=== PATIENT | female | born 1980 | race Two or more races ===

== ENCOUNTER 2021-07-07 10:11 | Inpatient (IN) | payer SELFPAY ==
[~2021-07-07] VITALS: Ht 149.9 cm; Wt 49.3 kg
[2021-07-07] MEDS ORDERED: METOCLOPRAMIDE HCL 10 MG/2 ML VIAL. IVP ONE (11:00)
[2021-07-07 11:12] LABS: BASO % 0 % (0-3); EOS % 0 % (0-3); HEMATOCRIT 38.8 % (36.0-47.0); HEMOGLOBIN 13.5 g/dL (12.0-15.5); LYMPH # 0.5 x10^3/uL (1.0-4.8); LYMPH % 7 % (24-48); MEAN CORPUSCULAR HEMOGLOBIN 33 pg (25-35); MEAN CORPUSCULAR HGB CONC 35 g/dL (31-37); MEAN CORPUSCULAR VOLUME 94 fL (79-100); MONO # 0.4 x10^3/uL (0.0-1.1); MONO % 6 % (0-9); NEUT # 6.4 x10^3/uL (1.8-7.7); NEUT % 87 % (31-73); PLATELET COUNT 174 x10^3/uL (140-400); RED BLOOD COUNT 4.13 x10^6/uL (3.50-5.40); RED CELL DISTRIBUTION WIDTH 12.3 % (11.5-14.5); WHITE BLOOD COUNT 7.4 x10^3/uL (4.0-11.0)
[2021-07-07 11:22] LABS: CALCIUM 8.6 mg/dL (8.5-10.1); CREATININE 0.6 mg/dL (0.6-1.0); GFR 109.1; POTASSIUM 3.7 mmol/L (3.5-5.1)
[2021-07-07 11:30] LABS: BILIRUBIN,URINE NEGATIVE (NEG); CLARITY,URINE CLEAR; COLOR,URINE YELLOW; NITRITE,URINE NEGATIVE (NEG); PROTEIN,URINE NEGATIVE (NEG-TRACE)
[2021-07-07 11:33] LABS: ALBUMIN 3.9 g/dL (3.4-5.0); ALBUMIN/GLOBULIN RATIO 1.3 (1.0-1.7); TOTAL BILIRUBIN 1.9 mg/dL (0.2-1.0); TOTAL PROTEIN 6.9 g/dL (6.4-8.2)
--- NOTE | 2021-07-07 11:52 | PHYS DOC ---
Past Medical History Past Surgical History: No Surgical History Smoking Status: Never Smoker Alcohol Use: None General Adult EDM: Chief Complaint: ABDOMINAL PAIN HPI: HPI: Patient is a 41 year old female who present to ER for evaluation of right upper quad abdominal pain started yesterday. Patient complained of nausea vomiting , denies any fever. Patient denies any cough or fever, no chest pain, no trouble breathing Review of Systems: Review of Systems: Constitutional: Denies fever or chills. [] Eyes: Denies change in visual acuity. [] HENT: Denies nasal congestion or sore throat. [] Respiratory: Denies cough or shortness of breath. [] Cardiovascular: Denies chest pain or edema. [] GI: Positive for right upper quad abdominal pain with nausea, vomiting : Denies dysuria. [] Musculoskeletal: Denies back pain or joint pain. [] Integument: Denies rash. [] Neurologic: Denies headache, focal weakness or sensory changes. [] Endocrine: Denies polyuria or polydipsia. [] Lymphatic: Denies swollen glands. [] Psychiatric: Denies depression or anxiety. [] Heart Score: C/O Chest Pain: N/A Risk Factors: Risk Factors: DM, Current or recent (<one month) smoker, HTN, HLP, family history of CAD, obesity. Risk Scores: Score 0 - 3: 2.5% MACE over next 6 weeks - Discharge Home Score 4 - 6: 20.3% MACE over next 6 weeks - Admit for Clinical Observation Score 7 - 10: 72.7% MACE over next 6 weeks - Early Invasive Strategies Current Medications: Current Medications Medications (Trade) Dose Ordered Sig/[facility] Start Time Stop Time Status Last Admin Dose Admin Metoclopramide HCl (Reglan Vial) 10 mg 1X ONCE 07/07/21 11:00 07/07/21 11:08 DC 07/07/21 11:29 10 MG Allergies: Allergies: Allergies Coded Allergies Type Severity Reaction Last Updated Verified No Known Drug Allergies 07/07/21 No Physical Exam: PE: Constitutional: Well developed, well nourished, no acute distress, non-toxic appearance. [] HENT: Normocephalic, atraumatic, bilateral external ears normal, oropharynx moist, no oral exudates, nose normal. [] Eyes: PERRLA, EOMI, conjunctiva normal, no discharge. [] Neck: Normal range of motion, no tenderness, supple, no stridor. [] Cardiovascular:Heart rate regular rhythm, no murmur [] Lungs & Thorax: Bilateral breath sounds clear to auscultation [] Abdomen: Bowel sounds normal, soft, there is tenderness to palpation in right upper quadrant, no guarding, no rebound Skin: Warm, dry, no erythema, no rash. [] Back: No tenderness, no CVA tenderness. [] Extremities: No tenderness, no cyanosis, no clubbing, ROM intact, no edema. [] Neurologic: Alert and oriented X 3, normal motor function, normal sensory function, no focal deficits noted. [] Psychologic: Affect normal, judgement normal, mood normal. [] Current Patient Data: Labs: Laboratory Tests Test 07/07/21 11:00 White Blood Count 7.4 x10^3/uL (4.0-11.0) Red Blood Count 4.13 x10^6/uL (3.50-5.40) Hemoglobin 13.5 g/dL (12.0-15.5) Hematocrit 38.8 % (36.0-47.0) Mean Corpuscular Volume 94 fL (79-100) Mean Corpuscular Hemoglobin 33 pg (25-35) Mean Corpuscular Hemoglobin Concent 35 g/dL (31-37) Red Cell Distribution Width 12.3 % (11.5-14.5) Platelet Count 174 x10^3/uL (140-400) Neutrophils (%) (Auto) 87 % (31-73) H Lymphocytes (%) (Auto) 7 % (24-48) L Monocytes (%) (Auto) 6 % (0-9) Eosinophils (%) (Auto) 0 % (0-3) Basophils (%) (Auto) 0 % (0-3) Neutrophils # (Auto) 6.4 x10^3/uL (1.8-7.7) Lymphocytes # (Auto) 0.5 x10^3/uL (1.0-4.8) L Monocytes # (Auto) 0.4 x10^3/uL (0.0-1.1) Eosinophils # (Auto) 0.0 x10^3/uL (0.0-0.7) Basophils # (Auto) 0.0 x10^3/uL (0.0-0.2) Sodium Level 137 mmol/L (136-145) Potassium Level 3.7 mmol/L (3.5-5.1) Chloride Level 103 mmol/L (98-107) Carbon Dioxide Level 23 mmol/L (21-32) Anion Gap 11 (6-14) Blood Urea Nitrogen 13 mg/dL (7-20) Creatinine 0.6 mg/dL (0.6-1.0) Estimated GFR (Cockcroft-Gault) 109.1 BUN/Creatinine Ratio 22 (6-20) H Glucose Level 124 mg/dL (70-99) H Calcium Level 8.6 mg/dL (8.5-10.1) Total Bilirubin 1.9 mg/dL (0.2-1.0) H Aspartate Amino Transferase (AST) 1346 U/L (15-37) H Alanine Aminotransferase (ALT) 722 U/L (14-59) H Alkaline Phosphatase 66 U/L (46-116) Total Protein 6.9 g/dL (6.4-8.2) Albumin 3.9 g/dL (3.4-5.0) Albumin/Globulin Ratio 1.3 (1.0-1.7) Lipase 197 U/L (73-393) Laboratory Tests 07/07/21 11:00 Laboratory Tests 07/07/21 11:00 Vital Signs: Vital Signs Date Time Temp Pulse Resp B/P (MAP) Pulse Ox O2 Delivery O2 Flow Rate FiO2 07/07/21 11:17 52 18 137/79 (98) 100 Room Air 07/07/21 10:45 97.7 97.7 EKG: EKG: [] Radiology/Procedures: Radiology/Procedures: [facility] [address] [place] [address] IMAGING REPORT Signed PATIENT: OLU RG ACCOUNT: [id number] : 1980 LOCATION: ER AGE: 41 SEX: F EXAM STATUS: PRE ER ORD. PHYSICIAN: CIPRIANO WHEAT DO REASON: RUQ ABDOMINAL PAIN PROCEDURE: ABDOMEN LTD EXAM: ULTRASOUND ABDOMEN LIMITED CLINICAL HISTORY: Reason: Right upper quadrant ABDOMINAL PAIN COMPARISON: None available. TECHNIQUE: Limited ultrasound examination of the right upper quadrant of the abdomen was performed. FINDINGS: No focal enlargement of the pancreas is seen. Intrahepatic portion of the IVC is unremarkable. The liver measures 15.8 centimeters in length. No hepatic mass is seen. There is a 21 mm gallstone within the gallbladder fundus. Gallbladder is distended measuring up to 11.2 cm. No gallbladder wall thickening is apparent. The extra hepatic bile duct measures 5 mm in caliber which is normal. The length of the right kidney is 10.5 cm. No hydronephrosis or renal mass or perinephric fluid collection is seen on the right side. IMPRESSION: Cholelithiasis. Gallbladder distention measuring over 11 cm. Electronically signed by: Sanchez Crouch MD (07/07/2021 1:06 PM) [id number] DICTATED and SIGNED BY: SANCHEZ CROUCH MD DATE: 07/07/21 [id number] 0 Course & Med Decision Making: Course & Med Decision Making Pertinent Labs and Imaging studies reviewed. (See chart for details) [] Dragon Disclaimer: Dragon Disclaimer: This electronic medical record was generated, in whole or in part, using a voice recognition dictation system. Departure Departure Impression: Primary Impression: Biliary colic Additional Impression: Liver function abnormality Disposition: ADMITTED INPATIENT Admitting Physician: ILA (Dr. Hoyt) Condition: STABLE CIPRIANO WHEAT DO Jul 07, 2021 11:52
[2021-07-07 12:09] LABS: BACTERIA,URINE 0 /HPF (0-FEW); RBC,URINE 0 /HPF (0-2); WBC,URINE 0 /HPF (0-4)
--- NOTE | 2021-07-07 13:09 | RAD ---
EXAM: ULTRASOUND ABDOMEN LIMITED CLINICAL HISTORY: Reason: Right upper quadrant ABDOMINAL PAIN COMPARISON: None available. TECHNIQUE: Limited ultrasound examination of the right upper quadrant of the abdomen was performed. FINDINGS: No focal enlargement of the pancreas is seen. Intrahepatic portion of the IVC is unremarkab le. The liver measures 15.8 centimeters in length. No hepatic mass is seen. There is a 21 mm gallston e within the gallbladder fundus. Gallbladder is distended measuring up to 11.2 cm. No gallbladder wal l thickening is apparent. The extra hepatic bile duct measures 5 mm in caliber which is normal. The l ength of the right kidney is 10.5 cm. No hydronephrosis or renal mass or perinephric fluid collection is seen on the right side. IMPRESSION: Cholelithiasis. Gallbladder distention measuring over 11 cm. Electronically signed by: Brenton Crouch MD (07/07/2021 1:06 PM) [id number]
[2021-07-07] MEDS ORDERED: MORPHINE SULFATE 4 MG/ML INJ. IVP ONE (13:15)
[2021-07-07 13:56] LABS: U PREG PATIENT NEGATIVE (NEG)
--- NOTE | 2021-07-07 14:21 | PDOC1 ---
History and Physical Date of Admission Date of Admission DATE: 07/07/21 TIME: 14:21 Identification/Chief Complaint Chief Complaint Abdominal pain Source Source: Patient History of Present Illness History of Present Illness Ms Leal is a 41yo [place] female with no past medical history who comes to ED accompanied by her c/o severe RUQ pain. Pain is colicky, sharp, does not radiate, rated 7/10. Pain awoke her 300 and did vomit twice and applied a heating pad which initially gave her some improvement. She had associated nausea and was unable to even get out of bed. this began upon awakening today. no cough or fever, no chest pain, no trouble breathing This occurred 1 month ago and resolved, though she has been taking omeprazole since then as I suspected it was due to dyspepsia or from eating hot peppers. No diarrhea or constipation. No recent travel or sick contacts. Has 3 healthy children at home. Labs with WBC 7.4, Hb 13.5, platelets 174, NA 137, K3.7, BUN 13, CR 0.6, glucose 124, calcium 8.6, total bilirubin 1.9, AST 1346, ALT 722, alk phos 66, albumin 3.9, lipase 197, urine test negative urinalysis otherwise bland. Abdominal US with 21 mm gallstone in gallbladder fundus and enlarged gallbladder 11.2 cm. No gallbladder wall thickening is apparent. The extra hepatic bile duct measures 5 mm. Pain improved to 4/10 with IV morphine. Admitted for further care with general surgery consultation. Past Medical History Cardiovascular: No pertinent hx Pulmonary: No pertinent hx Past Surgical History Past Surgical History: No pertinent history Family History Family History: Diabetes (Mother) Social History Smoke: No ALCOHOL: none Drugs: None Current Medications Current Medications Current Medications Metoclopramide HCl (Reglan Vial) 10 mg 1X ONCE IVP Last administered on 07/07/21at 11:29; Start 07/07/21 at 11:00; Stop 07/07/21 at 11:08; Status DC Morphine Sulfate (Morphine Sulfate) 4 mg 1X ONCE IVP Last administered on 07/07/21at 13:28; Start 07/07/21 at 13:15; Stop 07/07/21 at 13:16; Status DC Allergies Allergies: Coded Allergies: No Known Drug Allergies (Unverified , 07/07/21) ROS General: YES: Appetite; No: Chills, Night Sweats, Fatigue, Malaise, Other PSYCHOLOGICAL ROS: No: Anxiety, Behavioral Disorder, Concentration difficultie, Decreased libido, Depression, Disorientation, Hallucinations, Hostility, Irritablity, Memory difficulties, Mood Swings, Obsessive thoughts, Physical abuse, Sexual abuse, Sleep disturbances, Suicidal ideation, Other Eyes: No Blurry vision, No Decreased vision, No Double vision, No Dry eyes, No Excessive tearing, No Eye Pain, No Itchy Eyes, No Loss of vision, No Photophobia, No Scotomata, No Uses contacts, No Uses glasses, No Other HEENT: No: Heacaches, Visual Changes, Hearing change, Nasal congestion, Nasal discharge, Oral lesions, Sinus pain, Sore Throat, Epistaxis, Sneezing, Snoring, Tinnitus, Vertigo, Vocal changes, Other ALLERGY AND IMMUNOLOGY: No: Hives, Insect Bite Sensitivity, Itchy/Watery Eyes, Nasal Congestion, Post Nasal Drip, Seasonal Allergies, Other Hematological and Lymphatic: No: Bleeding Problems, Blood Clots, Blood Transfusions, Brusing, Night Sweats, Pallor, Swollen Lymph Nodes, Other ENDOCRINE: No: Breast Changes, Galactorrhea, Hair Pattern Changes, Hot Flashes, Malaise/lethargy, Mood Swings, Palpitations, Polydipsia/polyuria, Skin Changes, Temperature Intolerance, Unexpected Weight Changes, Other Breast: No New/Changing Breast Lumps, No Nipple changes, No Nipple discharge, No Other Respiratory: No: Cough, Hemoptysis, Orthopnea, Pleuritic Pain, Shortness of breath, SOB with excertion, Sputum Changes, Stridor, Tachypnea, Wheezing, Other Cardiovascular: No Chest Pain, No Palpitations, No Orthopnea, No Paroxysmal Noc. Dyspnea, No Edema, No Lt Headedness, No Other Gastrointestinal: Yes Nausea, Yes Vomiting, Yes Abdominal Pain; No Diarrhea, No Constipation, No Melena, No Hematochezia, No Other Genitourinary: No Dysuria, No Frequency, No Incontinence, No Hematuria, No Retention, No Discharge, No Urgency, No Pain, No Flank Pain, No Other, No , No , No , No , No , No , No Musculoskeletal: No Gait Disturbance, No Joint Pain, No Joint Stiffness, No Joint Swelling, No Muscle Pain, No Muscular Weakness, No Pain In:, No Swelling In:, No Other Neurological: No Behavorial Changes, No Bowel/Bladder ControlChng, No Confusion, No Dizziness, No Gait Disturbance, No Headaches, No Impaired Coord/balance, No Memory Loss, No Numbness/Tingling, No Seizures, No Speech Problems, No Tremors, No Visual Changes, No Weakness, No Other Skin: No Dry Skin, No Eczema, No Hair Changes, No Lumps, No Mole Changes, No Mottling, No Nail Changes, No Pruritus, No Rash, No Skin Lesion Changes, No Other, No Acne Physical Exam General: Alert, Oriented X3, Cooperative, moderate distress HEENT: Atraumatic, PERRLA, EOMI, Mucous membr. moist/pink Lungs: Clear to auscultation, Normal air movement Heart: S1S2, RRR, no thrills, no rubs, no gallops, no murmurs Abdomen: Normal bowel sounds, Soft, No hepatosplenomegaly, No masses, Other (RUQ tender, positive garcia sign) Rectal Exam: not examined Extremities: No clubbing, No cyanosis, No edema, Normal pulses, No tenderness/swelling Skin: No rashes, No breakdown, No significant lesion Neuro: Normal gait, Normal speech, Strength at 5/5 X4 ext, Normal tone, Sensation intact, Cranial nerves 3-12 NL, Reflexes 2+ Psych/Mental Status: Mental status NL, Mood NL Vitals Vitals Vital Signs Date Time Temp Pulse Resp B/P (MAP) Pulse Ox O2 Delivery O2 Flow Rate FiO2 07/07/21 13:17 52 17 116/65 (82) 100 Room Air 07/07/21 10:45 97.7 97.7 Labs Labs Laboratory Tests Test 07/07/21 10:48 07/07/21 11:00 Urine Collection Type Unknown Urine Color Yellow Urine Clarity Clear Urine pH 7.0 (<5.0-8.0) Urine Specific [place] 1.020 (1.000-1.030) Urine Protein Negative mg/dL (NEG-TRACE) Urine Glucose (UA) Negative mg/dL (NEG) Urine Ketones (Stick) Negative mg/dL (NEG) Urine Blood Negative (NEG) Urine Nitrite Negative (NEG) Urine Bilirubin Negative (NEG) Urine Urobilinogen Dipstick 1.0 mg/dL (0.2 mg/dL) Urine Leukocyte Esterase Negative (NEG) Urine RBC 0 /HPF (0-2) Urine WBC 0 /HPF (0-4) Urine Squamous Epithelial Cells Few /LPF Urine Bacteria 0 /HPF (0-FEW) Urine Test Negative (NEG) White Blood Count 7.4 x10^3/uL (4.0-11.0) Red Blood Count 4.13 x10^6/uL (3.50-5.40) Hemoglobin 13.5 g/dL (12.0-15.5) Hematocrit 38.8 % (36.0-47.0) Mean Corpuscular Volume 94 fL (79-100) Mean Corpuscular Hemoglobin 33 pg (25-35) Mean Corpuscular Hemoglobin Concent 35 g/dL (31-37) Red Cell Distribution Width 12.3 % (11.5-14.5) Platelet Count 174 x10^3/uL (140-400) Neutrophils (%) (Auto) 87 % (31-73) Lymphocytes (%) (Auto) 7 % (24-48) Monocytes (%) (Auto) 6 % (0-9) Eosinophils (%) (Auto) 0 % (0-3) Basophils (%) (Auto) 0 % (0-3) Neutrophils # (Auto) 6.4 x10^3/uL (1.8-7.7) Lymphocytes # (Auto) 0.5 x10^3/uL (1.0-4.8) Monocytes # (Auto) 0.4 x10^3/uL (0.0-1.1) Eosinophils # (Auto) 0.0 x10^3/uL (0.0-0.7) Basophils # (Auto) 0.0 x10^3/uL (0.0-0.2) Sodium Level 137 mmol/L (136-145) Potassium Level 3.7 mmol/L (3.5-5.1) Chloride Level 103 mmol/L (98-107) Carbon Dioxide Level 23 mmol/L (21-32) Anion Gap 11 (6-14) Blood Urea Nitrogen 13 mg/dL (7-20) Creatinine 0.6 mg/dL (0.6-1.0) Estimated GFR (Cockcroft-Gault) 109.1 BUN/Creatinine Ratio 22 (6-20) Glucose Level 124 mg/dL (70-99) Calcium Level 8.6 mg/dL (8.5-10.1) Total Bilirubin 1.9 mg/dL (0.2-1.0) Aspartate Amino Transf (AST/SGOT) 1346 U/L (15-37) Alanine Aminotransferase (ALT/SGPT) 722 U/L (14-59) Alkaline Phosphatase 66 U/L (46-116) Total Protein 6.9 g/dL (6.4-8.2) Albumin 3.9 g/dL (3.4-5.0) Albumin/Globulin Ratio 1.3 (1.0-1.7) Lipase 197 U/L (73-393) Laboratory Tests Test 07/07/21 10:48 07/07/21 11:00 Urine Collection Type Unknown Urine Color Yellow Urine Clarity Clear Urine pH 7.0 (<5.0-8.0) Urine Specific [place] 1.020 (1.000-1.030) Urine Protein Negative mg/dL (NEG-TRACE) Urine Glucose (UA) Negative mg/dL (NEG) Urine Ketones (Stick) Negative mg/dL (NEG) Urine Blood Negative (NEG) Urine Nitrite Negative (NEG) Urine Bilirubin Negative (NEG) Urine Urobilinogen Dipstick 1.0 mg/dL (0.2 mg/dL) Urine Leukocyte Esterase Negative (NEG) Urine RBC 0 /HPF (0-2) Urine WBC 0 /HPF (0-4) Urine Squamous Epithelial Cells Few /LPF Urine Bacteria 0 /HPF (0-FEW) Urine Test Negative (NEG) White Blood Count 7.4 x10^3/uL (4.0-11.0) Red Blood Count 4.13 x10^6/uL (3.50-5.40) Hemoglobin 13.5 g/dL (12.0-15.5) Hematocrit 38.8 % (36.0-47.0) Mean Corpuscular Volume 94 fL (79-100) Mean Corpuscular Hemoglobin 33 pg (25-35) Mean Corpuscular Hemoglobin Concent 35 g/dL (31-37) Red Cell Distribution Width 12.3 % (11.5-14.5) Platelet Count 174 x10^3/uL (140-400) Neutrophils (%) (Auto) 87 % (31-73) Lymphocytes (%) (Auto) 7 % (24-48) Monocytes (%) (Auto) 6 % (0-9) Eosinophils (%) (Auto) 0 % (0-3) Basophils (%) (Auto) 0 % (0-3) Neutrophils # (Auto) 6.4 x10^3/uL (1.8-7.7) Lymphocytes # (Auto) 0.5 x10^3/uL (1.0-4.8) Monocytes # (Auto) 0.4 x10^3/uL (0.0-1.1) Eosinophils # (Auto) 0.0 x10^3/uL (0.0-0.7) Basophils # (Auto) 0.0 x10^3/uL (0.0-0.2) Sodium Level 137 mmol/L (136-145) Potassium Level 3.7 mmol/L (3.5-5.1) Chloride Level 103 mmol/L (98-107) Carbon Dioxide Level 23 mmol/L (21-32) Anion Gap 11 (6-14) Blood Urea Nitrogen 13 mg/dL (7-20) Creatinine 0.6 mg/dL (0.6-1.0) Estimated GFR (Cockcroft-Gault) 109.1 BUN/Creatinine Ratio 22 (6-20) Glucose Level 124 mg/dL (70-99) Calcium Level 8.6 mg/dL (8.5-10.1) Total Bilirubin 1.9 mg/dL (0.2-1.0) Aspartate Amino Transf (AST/SGOT) 1346 U/L (15-37) Alanine Aminotransferase (ALT/SGPT) 722 U/L (14-59) Alkaline Phosphatase 66 U/L (46-116) Total Protein 6.9 g/dL (6.4-8.2) Albumin 3.9 g/dL (3.4-5.0) Albumin/Globulin Ratio 1.3 (1.0-1.7) Lipase 197 U/L (73-393) Images Images RUQ US: No focal enlargement of the pancreas is seen. Intrahepatic portion of the IVC is unremarkable. The liver measures 15.8 centimeters in length. No hepatic mass is seen. There is a 21 mm gallstone within the gallbladder fundus. Gallbladder is distended measuring up to 11.2 cm. No gallbladder wall thickening is apparent. The extra hepatic bile duct measures 5 mm in caliber which is normal. The length of the right kidney is 10.5 cm. No hydronephrosis or renal mass or perinephric fluid collection is seen on the right side. IMPRESSION: Cholelithiasis. Gallbladder distention measuring over 11 cm. VTE Prophylaxis Ordered VTE Prophylaxis Devices: Yes VTE Pharmacological Prophylaxi: No Assessment/Plan Assessment/Plan A/P: Intractable abdominal pain - due to symptomatic cholelithiasis. Given recurrence and severity of transaminase abnormalities should consider lap gary. General surgery consulted. No further testing prior necessary. COVID 19 pending Transaminitis - likely related to biliary obstruction, possibly passed gallstone vs biliary sludge. No clear sign of pancreatitis. No exposure to hepatitis, no travel or sick contacts Nausea and vomiting - due to above. IV anti-emetics and pain medications ordered. FEN - NPO PPX - SCDs FULL CODE Dispo - inpatient for pain management with symptomatic cholelithiasis. Appreciate surgical recommendations Justifications for Admission Abdominal Pain Indications Is patient in severe pain?: Yes Justification for admission: Patient has severe pain that requires (parenteral analgesic-please state analgesics and route) at least every 4 hours necessitating inpatient level of care. Is NPO status required?: Yes Other Justification ODIN REYNA MD Jul 07, 2021 14:21
[2021-07-07] MEDS ORDERED: ONDANSETRON PF 4 MG/2 ML VIAL. IVP PRN (14:30)
[2021-07-07] MEDS: IV RINGERS,LACTATED 1000ML 1,000 ML IV SCH ×2 (14:30→19:14)
[2021-07-07] MEDS ORDERED: HYDROcodone/APAP 5/325MG 1 TAB TABLET PO PRN ×2 (14:30)
[2021-07-07] MEDS ORDERED: ACETAMINOPHEN 325 MG TABLET. PO PRN (14:30)
[2021-07-07] MEDS ORDERED: MAGNESIUM HYDROXIDE 2,400 MG/30 ML ORAL.SUSP. PO PRN (14:30)
[2021-07-07] MEDS ORDERED: MORPHINE SULFATE 2 MG/ML INJ. IV PRN ×2 (14:30)
--- NOTE | 2021-07-07 14:35 | PDOC2 ---
RAND ADAMS ELECTRICAL CAD TECHNICIAN 07/07/21 1435: CONSULT Date of Consult Date of Consult DATE: 07/07/21 TIME: 14:32 Reason for Consult Reason for Consult: cholelithiasis Referring Physician Referring Physician: ER Identification/Chief Complaint Chief Complaint abdominal pain Source Source: Chart review, Patient History of Present Illness Reason for Visit: Acute onset RUQ pain with nausea. Happened about month ago, however not as severe and resolved. Both times had eaten a hot pepper. No diarrhea or constipation Past Medical History Past Medical History denies any pertinent hx Past Surgical History Past Surgical History: No pertinent history Family History Family History: Other (noncontributory to current illness ) Social History No ALCOHOL: none Lives: Alone Current Medications Current Medications Current Medications Metoclopramide HCl (Reglan Vial) 10 mg 1X ONCE IVP Last administered on 07/07/21at 11:29; Start 07/07/21 at 11:00; Stop 07/07/21 at 11:08; Status DC Morphine Sulfate (Morphine Sulfate) 4 mg 1X ONCE IVP Last administered on 07/07/21at 13:28; Start 07/07/21 at 13:15; Stop 07/07/21 at 13:16; Status DC Ringer's Solution 1,000 ml @ 100 mls/hr Q10H IV ; Start 07/07/21 at 14:30; Stop 07/08/21 at 00:29 Ondansetron HCl (Zofran) 4 mg PRN Q6HRS PRN IVP NAUSEA/VOMITING; Start 07/07/21 at 14:30 Morphine Sulfate (Morphine Sulfate) 1 mg PRN Q1HR PRN IV PAIN-SEE COMMENTS; Start 07/07/21 at 14:30 Morphine Sulfate (Morphine Sulfate) 2 mg PRN Q1HR PRN IV PAIN; Start 07/07/21 at 14:30 Acetaminophen/ Hydrocodone Bitart (Lortab 5/325) 1 tab PRN Q4HRS PRN PO MILD PAIN 1-3; Start 07/07/21 at 14:30 Acetaminophen/ Hydrocodone Bitart (Lortab 5/325) 2 tab PRN Q4HRS PRN PO MODERATE PAIN, SEVERE PAIN; Start 07/07/21 at 14:30 Acetaminophen (Tylenol) 650 mg PRN Q6HRS PRN PO Headaches, Temp > 101.5F; Start 07/07/21 at 14:30 Senna/Docusate Sodium (Senna Plus) 1 tab BID PO ; Start 07/07/21 at 21:00 Magnesium Hydroxide (Milk Of Magnesia) 2,400 mg PRN Q12HR PRN PO CONSTIPATION; Start 07/07/21 at 14:30 Allergies Allergies: Coded Allergies: No Known Drug Allergies (Unverified , 07/07/21) ROS General: No: Chills, Other (fevers ) PSYCHOLOGICAL ROS: No: Anxiety, Depression Eyes: No Blurry vision, No Double vision HEENT: No: Heacaches, Sore Throat Hematological and Lymphatic: No: Bleeding Problems, Blood Clots Respiratory: No: Cough, Shortness of breath Cardiovascular: No Chest Pain, No Palpitations Gastrointestinal: Yes Other (see hpi) Genitourinary: No Dysuria, No Hematuria Musculoskeletal: No Joint Pain, No Muscle Pain Neurological: No Impaired Coord/balance, No Numbness/Tingling Skin: No Pruritus, No Rash Physical Exam General: Alert, Oriented X3, Cooperative HEENT: Atraumatic, PERRLA Lungs: Clear to auscultation, Normal air movement Heart: Regular rate, Normal S1, Normal S2 Abdomen: Soft, Other (RUQ TTP ) Extremities: No clubbing, No cyanosis Skin: No rashes, No breakdown Neuro: Normal gait, Normal speech Psych/Mental Status: Mental status NL, Mood NL MUSCULOSKELETAL: No deformity, No swelling Vitals VITALS Vital Signs Date Time Temp Pulse Resp B/P (MAP) Pulse Ox O2 Delivery O2 Flow Rate FiO2 07/07/21 13:17 52 17 116/65 (82) 100 Room Air 07/07/21 10:45 97.7 97.7 Labs Labs Laboratory Tests Test 07/07/21 10:48 07/07/21 11:00 Urine Collection Type Unknown Urine Color Yellow Urine Clarity Clear Urine pH 7.0 (<5.0-8.0) Urine Specific [place] 1.020 (1.000-1.030) Urine Protein Negative mg/dL (NEG-TRACE) Urine Glucose (UA) Negative mg/dL (NEG) Urine Ketones (Stick) Negative mg/dL (NEG) Urine Blood Negative (NEG) Urine Nitrite Negative (NEG) Urine Bilirubin Negative (NEG) Urine Urobilinogen Dipstick 1.0 mg/dL (0.2 mg/dL) Urine Leukocyte Esterase Negative (NEG) Urine RBC 0 /HPF (0-2) Urine WBC 0 /HPF (0-4) Urine Squamous Epithelial Cells Few /LPF Urine Bacteria 0 /HPF (0-FEW) Urine Test Negative (NEG) White Blood Count 7.4 x10^3/uL (4.0-11.0) Red Blood Count 4.13 x10^6/uL (3.50-5.40) Hemoglobin 13.5 g/dL (12.0-15.5) Hematocrit 38.8 % (36.0-47.0) Mean Corpuscular Volume 94 fL (79-100) Mean Corpuscular Hemoglobin 33 pg (25-35) Mean Corpuscular Hemoglobin Concent 35 g/dL (31-37) Red Cell Distribution Width 12.3 % (11.5-14.5) Platelet Count 174 x10^3/uL (140-400) Neutrophils (%) (Auto) 87 % (31-73) Lymphocytes (%) (Auto) 7 % (24-48) Monocytes (%) (Auto) 6 % (0-9) Eosinophils (%) (Auto) 0 % (0-3) Basophils (%) (Auto) 0 % (0-3) Neutrophils # (Auto) 6.4 x10^3/uL (1.8-7.7) Lymphocytes # (Auto) 0.5 x10^3/uL (1.0-4.8) Monocytes # (Auto) 0.4 x10^3/uL (0.0-1.1) Eosinophils # (Auto) 0.0 x10^3/uL (0.0-0.7) Basophils # (Auto) 0.0 x10^3/uL (0.0-0.2) Sodium Level 137 mmol/L (136-145) Potassium Level 3.7 mmol/L (3.5-5.1) Chloride Level 103 mmol/L (98-107) Carbon Dioxide Level 23 mmol/L (21-32) Anion Gap 11 (6-14) Blood Urea Nitrogen 13 mg/dL (7-20) Creatinine 0.6 mg/dL (0.6-1.0) Estimated GFR (Cockcroft-Gault) 109.1 BUN/Creatinine Ratio 22 (6-20) Glucose Level 124 mg/dL (70-99) Calcium Level 8.6 mg/dL (8.5-10.1) Total Bilirubin 1.9 mg/dL (0.2-1.0) Aspartate Amino Transf (AST/SGOT) 1346 U/L (15-37) Alanine Aminotransferase (ALT/SGPT) 722 U/L (14-59) Alkaline Phosphatase 66 U/L (46-116) Total Protein 6.9 g/dL (6.4-8.2) Albumin 3.9 g/dL (3.4-5.0) Albumin/Globulin Ratio 1.3 (1.0-1.7) Lipase 197 U/L (73-393) Laboratory Tests Test 07/07/21 10:48 07/07/21 11:00 Urine Collection Type Unknown Urine Color Yellow Urine Clarity Clear Urine pH 7.0 (<5.0-8.0) Urine Specific [place] 1.020 (1.000-1.030) Urine Protein Negative mg/dL (NEG-TRACE) Urine Glucose (UA) Negative mg/dL (NEG) Urine Ketones (Stick) Negative mg/dL (NEG) Urine Blood Negative (NEG) Urine Nitrite Negative (NEG) Urine Bilirubin Negative (NEG) Urine Urobilinogen Dipstick 1.0 mg/dL (0.2 mg/dL) Urine Leukocyte Esterase Negative (NEG) Urine RBC 0 /HPF (0-2) Urine WBC 0 /HPF (0-4) Urine Squamous Epithelial Cells Few /LPF Urine Bacteria 0 /HPF (0-FEW) Urine Test Negative (NEG) White Blood Count 7.4 x10^3/uL (4.0-11.0) Red Blood Count 4.13 x10^6/uL (3.50-5.40) Hemoglobin 13.5 g/dL (12.0-15.5) Hematocrit 38.8 % (36.0-47.0) Mean Corpuscular Volume 94 fL (79-100) Mean Corpuscular Hemoglobin 33 pg (25-35) Mean Corpuscular Hemoglobin Concent 35 g/dL (31-37) Red Cell Distribution Width 12.3 % (11.5-14.5) Platelet Count 174 x10^3/uL (140-400) Neutrophils (%) (Auto) 87 % (31-73) Lymphocytes (%) (Auto) 7 % (24-48) Monocytes (%) (Auto) 6 % (0-9) Eosinophils (%) (Auto) 0 % (0-3) Basophils (%) (Auto) 0 % (0-3) Neutrophils # (Auto) 6.4 x10^3/uL (1.8-7.7) Lymphocytes # (Auto) 0.5 x10^3/uL (1.0-4.8) Monocytes # (Auto) 0.4 x10^3/uL (0.0-1.1) Eosinophils # (Auto) 0.0 x10^3/uL (0.0-0.7) Basophils # (Auto) 0.0 x10^3/uL (0.0-0.2) Sodium Level 137 mmol/L (136-145) Potassium Level 3.7 mmol/L (3.5-5.1) Chloride Level 103 mmol/L (98-107) Carbon Dioxide Level 23 mmol/L (21-32) Anion Gap 11 (6-14) Blood Urea Nitrogen 13 mg/dL (7-20) Creatinine 0.6 mg/dL (0.6-1.0) Estimated GFR (Cockcroft-Gault) 109.1 BUN/Creatinine Ratio 22 (6-20) Glucose Level 124 mg/dL (70-99) Calcium Level 8.6 mg/dL (8.5-10.1) Total Bilirubin 1.9 mg/dL (0.2-1.0) Aspartate Amino Transf (AST/SGOT) 1346 U/L (15-37) Alanine Aminotransferase (ALT/SGPT) 722 U/L (14-59) Alkaline Phosphatase 66 U/L (46-116) Total Protein 6.9 g/dL (6.4-8.2) Albumin 3.9 g/dL (3.4-5.0) Albumin/Globulin Ratio 1.3 (1.0-1.7) Lipase 197 U/L (73-393) Assessment/Plan Assessment/Plan Symptomatic cholelithiasis elevated LFTS plan lap gary with IOC 07/08 730 ROOSEVELT GOLD MD 07/08/21 6181: CONSULT Assessment/Plan Assessment/Plan Agree with above RAND ADAMS APRN Jul 07, 2021 14:35 ROOSEVELT GOLD MD Jul 08, 2021 07:25
[2021-07-07 19:00] VITALS: BP 99/54
[2021-07-07] MEDS: SENNOSIDES/DOCUSATE 8.6/50MG TABLET. PO SCH (21:00)
[2021-07-07 23:00] VITALS: BP 97/52
[2021-07-08] VITALS (7 sets, daily range): BP systolic 91–117; BP diastolic 55–66
[2021-07-08] MEDS ORDERED: ROCURONIUM 50 MG/5 ML VIAL. ONE (06:29)
[2021-07-08] MEDS ORDERED: DEXAMETHASONE SOD PHOS 4 MG/ML VIAL ONE (06:29)
[2021-07-08] MEDS ORDERED: PROPOFOL 10 MG/ML (20ML) VIAL. IV ONE (06:29)
[2021-07-08] MEDS ORDERED: ONDANSETRON PF 4 MG/2 ML VIAL. ONE (06:29)
[2021-07-08] MEDS ORDERED: LIDOCAINE 2% PF 5 ML VIAL. ONE (06:29)
[2021-07-08] MEDS ORDERED: fentaNYL PF VIAL 100 MCG/2 ML VIAL ONE ×2 (06:32→09:04)
[2021-07-08] MEDS ORDERED: IOHEXOL 300 MG/ML 50 ML VIAL. ONE (07:03)
[2021-07-08] MEDS ORDERED: BUPIVACAINE MPF 0.5% 30 ML VIAL. ONE (07:03)
[2021-07-08] MEDS ORDERED: SURGICEL HEMOSTAT 2X14 EACH. ONE (07:03)
[2021-07-08] MEDS ORDERED: KETOROLAC 30 MG/ML VIAL. ONE (08:18)
--- NOTE | 2021-07-08 08:27 | RAD ---
EXAM: INTRAOPERATIVE CHOLANGIOGRAM. HISTORY: Gallbladder disease. Intraoperative cholangiogram with cholecystectomy. COMPARISON: None. FINDINGS: 3 fluoroscopic images are obtained intraoperatively during injection of the cystic duct rem nant after cholecystectomy. There are no filling defects to suggest retained stones. The common duct is not dilated. Fluoroscopy time 0.16 minutes. IMPRESSION: 1. No evidence of retained stones. Electronically signed by: Maribell Dunham MD (07/08/2021 8:24 AM) [id number]
[2021-07-08] MEDS ORDERED: NEOSTIGMINE METHYLSULFATE 5 MG/5 ML SYRINGE. ONE (08:29)
[2021-07-08] MEDS ORDERED: GLYCOPYRROLATE 1 MG/5 ML VIAL. ONE (08:30)
[2021-07-08] MEDS ORDERED: SEVOFLURANE 61 TO 120 MINUTES. IH ONE (08:30)
--- NOTE | 2021-07-08 08:36 | PDOC4 ---
Operative Note Operative Note Operative Note: Preoperative Diagnosis: Calculus cholecystitis Postoperative Diagnosis: Same Procedure: Laparoscopic cholecystectomy with intraoperative cholangiogram Surgeons: Oziel Repairer Kiln Car: SILVERIO Burgess Anesthesia: Gen. Estimated Blood Loss: 10 mL Specimen: Gallbladder to pathology Drains: None Complications: None Indications: The patient is a 41-year-old female who admitted with abdominal pain. Her evaluation is consistent with calculus cholecystitis. Surgical treatment was offered by means of a laparoscopic cholecystectomy. The risks of surgery were discussed which include bleeding, infection, bile duct injury, bile leak, pain, the potential for additional surgeries or procedures. The patient understands and would like to proceed. Description: The patient was taken to the operating room and laid supine on the operating table. General anesthesia was performed. The abdomen was prepped with ChloraPrep and draped in a standard surgical fashion. A small infraumbilical incision was made with a scalpel. The Veress needle was then inserted and a pneumoperitoneum was then created. A 5 mm trocar was then inserted and the laparoscope was introduced. In the upper midabdomen a 5 mm trocar was inserted and in the right upper quadrant two 2.3 mm mini lap graspers were inserted. The gallbladder was retracted cephalad. The cystic duct was dissected free from surrounding tissues. One clip was placed on the duct near the gallbladder junction. An opening was made in the duct and a cholangiocatheter placed within and secured with a clip. Using contrast dye and fluoroscopy an intraoperative cholangiogram was performed that appeared unremarkable. The clip and catheter were then withdrawn. Three clips were placed on the cystic duct and it was divided. The cystic artery was then identified, dissected free, doubly clipped and divided as well. The gallbladder was then mobilized away from the liver with cautery. The umbilical 5 millimeter trocar was exchanged for an 11 millimeter trocar. The gallbladder was then placed in an endoscopic bag and extracted at the umbilical trocar site. The fascia there was closed with an 0 Vicryl suture and infiltrated with 0.5% marcaine. All blood and irrigation fluid was suctioned and hemostasis was good. The remaining ports were removed and the pneumoperitoneum was relieved. The skin incisions were closed using 4-0 Monocryl suture. Steri-Strips and dressings were then applied. The patient tolerated the procedure well and was sent to the recovery room in stable condition. At the end of the case all counts were correct. ROOSEVELT GOLD MD Jul 08, 2021 08:36
[2021-07-08] MEDS ORDERED: oxyCODONE/APAP 5/325 1 TAB TABLET PO PRN (08:45)
[2021-07-08] MEDS: fentaNYL PF VIAL 100 MCG/2 ML VIAL IVP PRN ×3 (09:13→12:08)
[2021-07-08] MEDS ORDERED: fentaNYL PF VIAL 100 MCG/2 ML VIAL IVP PRN ×3 (09:15)
[2021-07-08] MEDS ORDERED: MORPHINE SULFATE 2 MG/ML INJ. IVP PRN (09:15)
[2021-07-08] MEDS ORDERED: IV RINGERS,LACTATED 1000ML 1,000 ML IV SCH (09:15)
[2021-07-08] MEDS ORDERED: HYDROmorphone 2 MG/ML VIAL IVP PRN (09:15)
[2021-07-08] MEDS ORDERED: PROCHLORPERAZINE 10 MG/2 ML VIAL. IVP PRN (09:15)
[2021-07-08] MEDS: SENNOSIDES/DOCUSATE 8.6/50MG TABLET. PO SCH ×2 (09:57→20:16)
--- NOTE | 2021-07-08 11:20 | NUR ---
VERITO Dias, and VERITO Pollard, informed of covid + status of patient. Patient hap tahmina vega this a.m so OR informed as well.
--- NOTE | 2021-07-08 11:26 | NUR ---
Received call from Lab patient is positive for Covid PCR. Dr. King is aware of COVID results. Dr. Ludwig has been notified. was in room told about results and left room.
--- NOTE | 2021-07-08 12:12 | NUR ---
Pt being transferred to [address] [place] [address]. Patient is aware.
[2021-07-08 12:45] LABS: BASO % 0 % (0-3); EOS % 0 % (0-3); HEMATOCRIT 39.2 % (36.0-47.0); HEMOGLOBIN 13.4 g/dL (12.0-15.5); LYMPH # 0.4 x10^3/uL (1.0-4.8); LYMPH % 7 % (24-48); MEAN CORPUSCULAR HEMOGLOBIN 32 pg (25-35); MEAN CORPUSCULAR HGB CONC 34 g/dL (31-37); MEAN CORPUSCULAR VOLUME 95 fL (79-100); MONO # 0.1 x10^3/uL (0.0-1.1); MONO % 1 % (0-9); NEUT # 5.7 x10^3/uL (1.8-7.7); NEUT % 92 % (31-73); PLATELET COUNT 152 x10^3/uL (140-400); RED BLOOD COUNT 4.14 x10^6/uL (3.50-5.40); RED CELL DISTRIBUTION WIDTH 12.3 % (11.5-14.5); WHITE BLOOD COUNT 6.2 x10^3/uL (4.0-11.0)
[2021-07-08 13:12] LABS: ALBUMIN 3.3 g/dL (3.4-5.0); CREATININE 0.6 mg/dL (0.6-1.0); GFR 109.1; TOTAL BILIRUBIN 4.1 mg/dL (0.2-1.0); TOTAL PROTEIN 6.5 g/dL (6.4-8.2)
--- NOTE | 2021-07-08 15:08 | PDOC ---
[employer] PROGRESS NOTE Date of Service DOS: DATE: 07/08/21 TIME: 15:06 Chief Complaint Chief Complaint ACute covid pos Intractable abdominal pain - acute cholelithiasis. s/p OR, acute gary Transaminitis - likely related to biliary obstruction, possibly passed gallstone vs biliary sludge. Nausea and vomiting - due to above. IV anti-emetics and pain medications ordered. FEN History of Present Illness History of Present Illness adat SURG today, Dr. Mckeon, went well cnt current to COVID floor Vitals/I&O Vitals/I&O: Vital Signs Date Time Temp Pulse Resp B/P (MAP) Pulse Ox O2 Delivery O2 Flow Rate FiO2 07/08/21 12:49 99 Room Air 8.0 07/08/21 11:19 98.4 59 18 117/66 (83) 98.4 I & O 07/07/21 07/07/21 07/08/21 15:00 23:00 07:00 Intake Total 0 ml Balance 0 ml Physical Exam General: Alert, Oriented X3, Cooperative, mild distress Heart: Regular rate, Normal S1, Normal S2 Abdomen: Normal bowel sounds, Soft, No hepatosplenomegaly, No masses, Other (RUQ tender, positive garcia sign) Extremities: No clubbing, No cyanosis, No edema, Normal pulses, No tenderness/swelling Skin: No rashes, No breakdown, No significant lesion Labs Labs: Laboratory Tests Test 07/08/21 12:20 White Blood Count 6.2 x10^3/uL (4.0-11.0) Red Blood Count 4.14 x10^6/uL (3.50-5.40) Hemoglobin 13.4 g/dL (12.0-15.5) Hematocrit 39.2 % (36.0-47.0) Mean Corpuscular Volume 95 fL (79-100) Mean Corpuscular Hemoglobin 32 pg (25-35) Mean Corpuscular Hemoglobin Concent 34 g/dL (31-37) Red Cell Distribution Width 12.3 % (11.5-14.5) Platelet Count 152 x10^3/uL (140-400) Neutrophils (%) (Auto) 92 % (31-73) Lymphocytes (%) (Auto) 7 % (24-48) Monocytes (%) (Auto) 1 % (0-9) Eosinophils (%) (Auto) 0 % (0-3) Basophils (%) (Auto) 0 % (0-3) Neutrophils # (Auto) 5.7 x10^3/uL (1.8-7.7) Lymphocytes # (Auto) 0.4 x10^3/uL (1.0-4.8) Monocytes # (Auto) 0.1 x10^3/uL (0.0-1.1) Eosinophils # (Auto) 0.0 x10^3/uL (0.0-0.7) Basophils # (Auto) 0.0 x10^3/uL (0.0-0.2) Sodium Level 140 mmol/L (136-145) Potassium Level 4.0 mmol/L (3.5-5.1) Chloride Level 105 mmol/L (98-107) Carbon Dioxide Level 27 mmol/L (21-32) Anion Gap 8 (6-14) Blood Urea Nitrogen 8 mg/dL (7-20) Creatinine 0.6 mg/dL (0.6-1.0) Estimated GFR (Cockcroft-Gault) 109.1 BUN/Creatinine Ratio 13 (6-20) Glucose Level 92 mg/dL (70-99) Calcium Level 8.0 mg/dL (8.5-10.1) Total Bilirubin 4.1 mg/dL (0.2-1.0) Aspartate Amino Transf (AST/SGOT) 815 U/L (15-37) Alanine Aminotransferase (ALT/SGPT) 1217 U/L (14-59) Alkaline Phosphatase 118 U/L (46-116) Total Protein 6.5 g/dL (6.4-8.2) Albumin 3.3 g/dL (3.4-5.0) Albumin/Globulin Ratio 1.0 (1.0-1.7) Assessment and Plan Assessmemt and Plan Problems Medical Problems: (1) Biliary colic Status: Acute (2) Liver function abnormality Status: Acute Comment Review of Relevant I have reviewed the following items alvaro (where applicable) has been applied. Medications: Current Medications Medications (Trade) Dose Ordered Sig/Checo Route PRN Reason Start Time Stop Time Status Last Admin Dose Admin Iohexol (Omnipaque 300 Mg/ml) 50 ml STK-MED ONCE .ROUTE 07/08/21 07:03 07/08/21 07:03 DC 10/13/21 07:54 Bupivacaine HCl (Sensorcaine Mpf 0.5%) 30 ml STK-MED ONCE .ROUTE 07/08/21 07:03 07/08/21 07:03 DC 07/08/21 07:54 Fentanyl Citrate (Fentanyl 2ml Vial) 50 mcg PRN Q5MIN PRN IVP Acute Pain 07/08/21 09:15 07/09/21 09:14 07/08/21 09:24 Ringer's Solution 1,000 ml @ 30 mls/hr Q24H IV 07/08/21 09:15 07/08/21 21:14 07/08/21 09:15 Justifications for Admission Abdominal Pain Indications Is patient in severe pain?: Yes Justification for admission: Patient has severe pain that requires (parenteral analgesic-please state analgesics and route) at least every 4 hours necessitating inpatient level of care. Is NPO status required?: Yes Other Justification JUDI GOMEZ MD Jul 08, 2021 15:08
[2021-07-09 03:00] VITALS: BP 102/61
[2021-07-09 07:00] VITALS: BP 98/71
[2021-07-09] MEDS: SENNOSIDES/DOCUSATE 8.6/50MG TABLET. PO SCH (08:59)
[2021-07-09 09:50] LABS: ALBUMIN 3.1 g/dL (3.4-5.0); DIRECT BILIRUBIN 0.4 mg/dL (0.0-0.2); TOTAL BILIRUBIN 1.6 mg/dL (0.2-1.0); TOTAL PROTEIN 6.3 g/dL (6.4-8.2)
--- NOTE | 2021-07-09 10:18 | PDOC ---
SURGICAL PROGRESS NOTE DATE: 07/09/21 TIME: 10:16 Subjective feels well tolerating diet Vital Signs Vital Signs Date Time Temp Pulse Resp B/P (MAP) Pulse Ox O2 Delivery O2 Flow Rate FiO2 07/09/21 09:06 97 Room Air 8.0 07/09/21 07:00 97.4 67 17 98/71 (80) 97.4 I&O Intake and Output 07/09/21 07:00 Intake Total 1050 ml Output Total 60 ml Balance 990 ml IV Total 1050 ml Output Urine Total 50 ml Estimated Blood Loss 10 ml # Voids 1 General: Alert, Oriented X3, Cooperative Abdomen: Soft, Other (lap site dressings dry) Labs Laboratory Tests Test 07/07/21 10:48 07/07/21 11:00 07/07/21 15:02 07/08/21 12:20 Urine Collection Type Unknown Urine Color Yellow Urine Clarity Clear Urine pH 7.0 (<5.0-8.0) Urine Specific [place] 1.020 (1.000-1.030) Urine Protein Negative mg/dL (NEG-TRACE) Urine Glucose (UA) Negative mg/dL (NEG) Urine Ketones (Stick) Negative mg/dL (NEG) Urine Blood Negative (NEG) Urine Nitrite Negative (NEG) Urine Bilirubin Negative (NEG) Urine Urobilinogen Dipstick 1.0 mg/dL (0.2 mg/dL) Urine Leukocyte Esterase Negative (NEG) Urine RBC 0 /HPF (0-2) Urine WBC 0 /HPF (0-4) Urine Squamous Epithelial Cells Few /LPF Urine Bacteria 0 /HPF (0-FEW) Urine Test Negative (NEG) White Blood Count 7.4 x10^3/uL (4.0-11.0) 6.2 x10^3/uL (4.0-11.0) Red Blood Count 4.13 x10^6/uL (3.50-5.40) 4.14 x10^6/uL (3.50-5.40) Hemoglobin 13.5 g/dL (12.0-15.5) 13.4 g/dL (12.0-15.5) Hematocrit 38.8 % (36.0-47.0) 39.2 % (36.0-47.0) Mean Corpuscular Volume 94 fL (79-100) 95 fL (79-100) Mean Corpuscular Hemoglobin 33 pg (25-35) 32 pg (25-35) Mean Corpuscular Hemoglobin Concent 35 g/dL (31-37) 34 g/dL (31-37) Red Cell Distribution Width 12.3 % (11.5-14.5) 12.3 % (11.5-14.5) Platelet Count 174 x10^3/uL (140-400) 152 x10^3/uL (140-400) Neutrophils (%) (Auto) 87 % (31-73) 92 % (31-73) Lymphocytes (%) (Auto) 7 % (24-48) 7 % (24-48) Monocytes (%) (Auto) 6 % (0-9) 1 % (0-9) Eosinophils (%) (Auto) 0 % (0-3) 0 % (0-3) Basophils (%) (Auto) 0 % (0-3) 0 % (0-3) Neutrophils # (Auto) 6.4 x10^3/uL (1.8-7.7) 5.7 x10^3/uL (1.8-7.7) Lymphocytes # (Auto) 0.5 x10^3/uL (1.0-4.8) 0.4 x10^3/uL (1.0-4.8) Monocytes # (Auto) 0.4 x10^3/uL (0.0-1.1) 0.1 x10^3/uL (0.0-1.1) Eosinophils # (Auto) 0.0 x10^3/uL (0.0-0.7) 0.0 x10^3/uL (0.0-0.7) Basophils # (Auto) 0.0 x10^3/uL (0.0-0.2) 0.0 x10^3/uL (0.0-0.2) Sodium Level 137 mmol/L (136-145) 140 mmol/L (136-145) Potassium Level 3.7 mmol/L (3.5-5.1) 4.0 mmol/L (3.5-5.1) Chloride Level 103 mmol/L (98-107) 105 mmol/L (98-107) Carbon Dioxide Level 23 mmol/L (21-32) 27 mmol/L (21-32) Anion Gap 11 (6-14) 8 (6-14) Blood Urea Nitrogen 13 mg/dL (7-20) 8 mg/dL (7-20) Creatinine 0.6 mg/dL (0.6-1.0) 0.6 mg/dL (0.6-1.0) Estimated GFR (Cockcroft-Gault) 109.1 109.1 BUN/Creatinine Ratio 22 (6-20) 13 (6-20) Glucose Level 124 mg/dL (70-99) 92 mg/dL (70-99) Calcium Level 8.6 mg/dL (8.5-10.1) 8.0 mg/dL (8.5-10.1) Total Bilirubin 1.9 mg/dL (0.2-1.0) 4.1 mg/dL (0.2-1.0) Aspartate Amino Transf (AST/SGOT) 1346 U/L (15-37) 815 U/L (15-37) Alanine Aminotransferase (ALT/SGPT) 722 U/L (14-59) 1217 U/L (14-59) Alkaline Phosphatase 66 U/L (46-116) 118 U/L (46-116) Total Protein 6.9 g/dL (6.4-8.2) 6.5 g/dL (6.4-8.2) Albumin 3.9 g/dL (3.4-5.0) 3.3 g/dL (3.4-5.0) Albumin/Globulin Ratio 1.3 (1.0-1.7) 1.0 (1.0-1.7) Lipase 197 U/L (73-393) Hepatitis A IgM Antibody Nonreactive (Nonreactive) Hepatitis B Surface Antigen Nonreactive (Nonreactive) Hepatitis B Core IgM Antibody Nonreactive (Nonreactive) Hepatitis C IgG Antibody Nonreactive (Nonreactive) SARS-CoV-2 RNA (VIRGEN) Positive (Negative) SARS-CoV-2 Antigen (Rapid) Negative (NEGATIVE) Test 07/09/21 09:00 Total Bilirubin 1.6 mg/dL (0.2-1.0) Direct Bilirubin 0.4 mg/dL (0.0-0.2) Aspartate Amino Transf (AST/SGOT) 295 U/L (15-37) Alanine Aminotransferase (ALT/SGPT) 741 U/L (14-59) Alkaline Phosphatase 103 U/L (46-116) Total Protein 6.3 g/dL (6.4-8.2) Albumin 3.1 g/dL (3.4-5.0) Laboratory Tests Test 07/08/21 12:20 07/09/21 09:00 White Blood Count 6.2 x10^3/uL (4.0-11.0) Red Blood Count 4.14 x10^6/uL (3.50-5.40) Hemoglobin 13.4 g/dL (12.0-15.5) Hematocrit 39.2 % (36.0-47.0) Mean Corpuscular Volume 95 fL (79-100) Mean Corpuscular Hemoglobin 32 pg (25-35) Mean Corpuscular Hemoglobin Concent 34 g/dL (31-37) Red Cell Distribution Width 12.3 % (11.5-14.5) Platelet Count 152 x10^3/uL (140-400) Neutrophils (%) (Auto) 92 % (31-73) Lymphocytes (%) (Auto) 7 % (24-48) Monocytes (%) (Auto) 1 % (0-9) Eosinophils (%) (Auto) 0 % (0-3) Basophils (%) (Auto) 0 % (0-3) Neutrophils # (Auto) 5.7 x10^3/uL (1.8-7.7) Lymphocytes # (Auto) 0.4 x10^3/uL (1.0-4.8) Monocytes # (Auto) 0.1 x10^3/uL (0.0-1.1) Eosinophils # (Auto) 0.0 x10^3/uL (0.0-0.7) Basophils # (Auto) 0.0 x10^3/uL (0.0-0.2) Sodium Level 140 mmol/L (136-145) Potassium Level 4.0 mmol/L (3.5-5.1) Chloride Level 105 mmol/L (98-107) Carbon Dioxide Level 27 mmol/L (21-32) Anion Gap 8 (6-14) Blood Urea Nitrogen 8 mg/dL (7-20) Creatinine 0.6 mg/dL (0.6-1.0) Estimated GFR (Cockcroft-Gault) 109.1 BUN/Creatinine Ratio 13 (6-20) Glucose Level 92 mg/dL (70-99) Calcium Level 8.0 mg/dL (8.5-10.1) Total Bilirubin 4.1 mg/dL (0.2-1.0) 1.6 mg/dL (0.2-1.0) Aspartate Amino Transf (AST/SGOT) 815 U/L (15-37) 295 U/L (15-37) Alanine Aminotransferase (ALT/SGPT) 1217 U/L (14-59) 741 U/L (14-59) Alkaline Phosphatase 118 U/L (46-116) 103 U/L (46-116) Total Protein 6.5 g/dL (6.4-8.2) 6.3 g/dL (6.4-8.2) Albumin 3.3 g/dL (3.4-5.0) 3.1 g/dL (3.4-5.0) Albumin/Globulin Ratio 1.0 (1.0-1.7) Direct Bilirubin 0.4 mg/dL (0.0-0.2) Problem List Problems Medical Problems: (1) Biliary colic Status: Acute (2) Liver function abnormality Status: Acute Assessment/Plan s/p gary labs improved today stable surgically FU 2 weeks Justicifation of Admission Dx: Justifications for Admission: Justification of Admission Dx: Yes Comments: symptomatic cholelithiasis RAND ADAMS APRN Jul 09, 2021 10:18
[2021-07-09 11:00] VITALS: BP 100/7
--- NOTE | 2021-07-09 11:29 | PDOC ---
[employer] PROGRESS NOTE Date of Service DOS: DATE: 07/09/21 TIME: 11:27 Chief Complaint Chief Complaint Intractable abdominal pain - acute cholelithiasis. s/p OR, acute gary Transaminitis - likely related to biliary obstruction, possibly passed gallstone vs biliary sludge. Nausea and vomiting - due to above. IV anti-emetics and pain medications ordered. COVID 19 lab test positive - breakthrough case despite vaccination FEN - regular diet PPX - ambulatory FULL CODE Dispo - home with self care Consults: General surgery History of Present Illness History of Present Illness Ms Leal is a 41yo [place]ian camb[place]ian female with no past medical history who comes to ED accompanied by her c/o severe RUQ pain. Pain is colicky, sharp, does not radiate, rated 7/10. Pain awoke her 300 and did vomit twice and applied a heating pad which initially gave her some improvement. She had associated nausea and was unable to even get out of bed. this began upon awakening today. no cough or fever, no chest pain, no trouble breathing. Completed COVID 19 vaccinations. This occurred 1 month ago and resolved, though she has been taking omeprazole since then as I suspected it was due to dyspepsia or from eating hot peppers. No diarrhea or constipation. No recent travel or sick contacts. Has 3 healthy children at home. Labs with WBC 7.4, Hb 13.5, platelets 174, NA 137, K3.7, BUN 13, CR 0.6, glucose 124, calcium 8.6, total bilirubin 1.9, AST 1346, ALT 722, alk phos 66, albumin 3.9, lipase 197, urine test negative urinalysis otherwise bland. Abdominal US with 21 mm gallstone in gallbladder fundus and enlarged gallbladder 11.2 cm. No gallbladder wall thickening is apparent. The extra hepatic bile duct measures 5 mm. Pain improved to 4/10 with IV morphine. Admitted for further care with general surgery consultation. 07/08: Lap gary with no complications. Incidentally COVID 19 PCR returned positive. No respiratory symptoms. Afebrile. Seen bedside. Passing flatus tolerating p.o. well. Minimal pain relieved with hydrocodone after extensive ambulation. Discussed need for isolation at home for the next 8 days that she is COVID-19 breakthrough case. No heavy lifting and follow-up with surgery in the next 2 weeks Vitals/I&O Vitals/I&O: Vital Signs Date Time Temp Pulse Resp B/P (MAP) Pulse Ox O2 Delivery O2 Flow Rate FiO2 07/09/21 09:06 97 Room Air 8.0 07/09/21 07:00 97.4 67 17 98/71 (80) 97.4 I & O 07/08/21 07/08/21 07/09/21 15:00 23:00 07:00 Intake Total 1050 ml Output Total 60 ml Balance 990 ml Physical Exam General: Alert, Oriented X3, Cooperative Heart: Regular rate, Normal S1, Normal S2 Abdomen: Soft, Other (lap site dressings dry) Extremities: No clubbing, No cyanosis, No edema, Normal pulses, No tenderness/swelling Skin: No rashes, No breakdown, No significant lesion Labs Labs: Laboratory Tests Test 07/08/21 12:20 07/09/21 09:00 White Blood Count 6.2 x10^3/uL (4.0-11.0) Red Blood Count 4.14 x10^6/uL (3.50-5.40) Hemoglobin 13.4 g/dL (12.0-15.5) Hematocrit 39.2 % (36.0-47.0) Mean Corpuscular Volume 95 fL (79-100) Mean Corpuscular Hemoglobin 32 pg (25-35) Mean Corpuscular Hemoglobin Concent 34 g/dL (31-37) Red Cell Distribution Width 12.3 % (11.5-14.5) Platelet Count 152 x10^3/uL (140-400) Neutrophils (%) (Auto) 92 % (31-73) Lymphocytes (%) (Auto) 7 % (24-48) Monocytes (%) (Auto) 1 % (0-9) Eosinophils (%) (Auto) 0 % (0-3) Basophils (%) (Auto) 0 % (0-3) Neutrophils # (Auto) 5.7 x10^3/uL (1.8-7.7) Lymphocytes # (Auto) 0.4 x10^3/uL (1.0-4.8) Monocytes # (Auto) 0.1 x10^3/uL (0.0-1.1) Eosinophils # (Auto) 0.0 x10^3/uL (0.0-0.7) Basophils # (Auto) 0.0 x10^3/uL (0.0-0.2) Sodium Level 140 mmol/L (136-145) Potassium Level 4.0 mmol/L (3.5-5.1) Chloride Level 105 mmol/L (98-107) Carbon Dioxide Level 27 mmol/L (21-32) Anion Gap 8 (6-14) Blood Urea Nitrogen 8 mg/dL (7-20) Creatinine 0.6 mg/dL (0.6-1.0) Estimated GFR (Cockcroft-Gault) 109.1 BUN/Creatinine Ratio 13 (6-20) Glucose Level 92 mg/dL (70-99) Calcium Level 8.0 mg/dL (8.5-10.1) Total Bilirubin 4.1 mg/dL (0.2-1.0) 1.6 mg/dL (0.2-1.0) Aspartate Amino Transf (AST/SGOT) 815 U/L (15-37) 295 U/L (15-37) Alanine Aminotransferase (ALT/SGPT) 1217 U/L (14-59) 741 U/L (14-59) Alkaline Phosphatase 118 U/L (46-116) 103 U/L (46-116) Total Protein 6.5 g/dL (6.4-8.2) 6.3 g/dL (6.4-8.2) Albumin 3.3 g/dL (3.4-5.0) 3.1 g/dL (3.4-5.0) Albumin/Globulin Ratio 1.0 (1.0-1.7) Direct Bilirubin 0.4 mg/dL (0.0-0.2) Assessment and Plan Assessmemt and Plan Problems Medical Problems: (1) Biliary colic Status: Acute (2) Liver function abnormality Status: Acute Comment Review of Relevant I have reviewed the following items alvaro (where applicable) has been applied. Justifications for Admission Abdominal Pain Indications Is patient in severe pain?: Yes Justification for admission: Patient has severe pain that requires (parenteral analgesic-please state analgesics and route) at least every 4 hours necessitating inpatient level of care. Is NPO status required?: Yes Other Justification ODIN REYNA MD Jul 09, 2021 11:29
[2021-07-09] MEDS ORDERED: HYDR-2761 PO (11:56)
--- NOTE | 2021-07-09 12:07 | PDOC3 ---
Discharge Summary Visit Information Date of Admission: Jul 07, 2021 Date of Discharge: Jul 09, 2021 Admitting Diagnosis: Symptomatic cholelithiasis Final Diagnosis Problems Medical Problems: (1) Biliary colic Status: Acute (2) Liver function abnormality Status: Acute Brief Hospital Course Allergies Allergies Coded Allergies Type Severity Reaction Last Updated Verified No Known Drug Allergies 07/07/21 No Vital Signs Vital Signs Date Time Temp Pulse Resp B/P (MAP) Pulse Ox O2 Delivery O2 Flow Rate FiO2 07/09/21 11:00 97.7 66 18 100/7 (38) 97 97.7 07/09/21 09:06 Room Air 8.0 Lab Results Laboratory Tests Test 07/07/21 15:02 07/08/21 12:20 07/09/21 09:00 SARS-CoV-2 RNA (VIRGEN) Positive (Negative) SARS-CoV-2 Antigen (Rapid) Negative (NEGATIVE) White Blood Count 6.2 x10^3/uL (4.0-11.0) Red Blood Count 4.14 x10^6/uL (3.50-5.40) Hemoglobin 13.4 g/dL (12.0-15.5) Hematocrit 39.2 % (36.0-47.0) Mean Corpuscular Volume 95 fL (79-100) Mean Corpuscular Hemoglobin 32 pg (25-35) Mean Corpuscular Hemoglobin Concent 34 g/dL (31-37) Red Cell Distribution Width 12.3 % (11.5-14.5) Platelet Count 152 x10^3/uL (140-400) Neutrophils (%) (Auto) 92 % (31-73) Lymphocytes (%) (Auto) 7 % (24-48) Monocytes (%) (Auto) 1 % (0-9) Eosinophils (%) (Auto) 0 % (0-3) Basophils (%) (Auto) 0 % (0-3) Neutrophils # (Auto) 5.7 x10^3/uL (1.8-7.7) Lymphocytes # (Auto) 0.4 x10^3/uL (1.0-4.8) Monocytes # (Auto) 0.1 x10^3/uL (0.0-1.1) Eosinophils # (Auto) 0.0 x10^3/uL (0.0-0.7) Basophils # (Auto) 0.0 x10^3/uL (0.0-0.2) Sodium Level 140 mmol/L (136-145) Potassium Level 4.0 mmol/L (3.5-5.1) Chloride Level 105 mmol/L (98-107) Carbon Dioxide Level 27 mmol/L (21-32) Anion Gap 8 (6-14) Blood Urea Nitrogen 8 mg/dL (7-20) Creatinine 0.6 mg/dL (0.6-1.0) Estimated GFR (Cockcroft-Gault) 109.1 BUN/Creatinine Ratio 13 (6-20) Glucose Level 92 mg/dL (70-99) Calcium Level 8.0 mg/dL (8.5-10.1) Total Bilirubin 4.1 mg/dL (0.2-1.0) 1.6 mg/dL (0.2-1.0) Aspartate Amino Transf (AST/SGOT) 815 U/L (15-37) 295 U/L (15-37) Alanine Aminotransferase (ALT/SGPT) 1217 U/L (14-59) 741 U/L (14-59) Alkaline Phosphatase 118 U/L (46-116) 103 U/L (46-116) Total Protein 6.5 g/dL (6.4-8.2) 6.3 g/dL (6.4-8.2) Albumin 3.3 g/dL (3.4-5.0) 3.1 g/dL (3.4-5.0) Albumin/Globulin Ratio 1.0 (1.0-1.7) Direct Bilirubin 0.4 mg/dL (0.0-0.2) Laboratory Tests Test 07/08/21 12:20 07/09/21 09:00 White Blood Count 6.2 x10^3/uL (4.0-11.0) Red Blood Count 4.14 x10^6/uL (3.50-5.40) Hemoglobin 13.4 g/dL (12.0-15.5) Hematocrit 39.2 % (36.0-47.0) Mean Corpuscular Volume 95 fL (79-100) Mean Corpuscular Hemoglobin 32 pg (25-35) Mean Corpuscular Hemoglobin Concent 34 g/dL (31-37) Red Cell Distribution Width 12.3 % (11.5-14.5) Platelet Count 152 x10^3/uL (140-400) Neutrophils (%) (Auto) 92 % (31-73) Lymphocytes (%) (Auto) 7 % (24-48) Monocytes (%) (Auto) 1 % (0-9) Eosinophils (%) (Auto) 0 % (0-3) Basophils (%) (Auto) 0 % (0-3) Neutrophils # (Auto) 5.7 x10^3/uL (1.8-7.7) Lymphocytes # (Auto) 0.4 x10^3/uL (1.0-4.8) Monocytes # (Auto) 0.1 x10^3/uL (0.0-1.1) Eosinophils # (Auto) 0.0 x10^3/uL (0.0-0.7) Basophils # (Auto) 0.0 x10^3/uL (0.0-0.2) Sodium Level 140 mmol/L (136-145) Potassium Level 4.0 mmol/L (3.5-5.1) Chloride Level 105 mmol/L (98-107) Carbon Dioxide Level 27 mmol/L (21-32) Anion Gap 8 (6-14) Blood Urea Nitrogen 8 mg/dL (7-20) Creatinine 0.6 mg/dL (0.6-1.0) Estimated GFR (Cockcroft-Gault) 109.1 BUN/Creatinine Ratio 13 (6-20) Glucose Level 92 mg/dL (70-99) Calcium Level 8.0 mg/dL (8.5-10.1) Total Bilirubin 4.1 mg/dL (0.2-1.0) 1.6 mg/dL (0.2-1.0) Aspartate Amino Transf (AST/SGOT) 815 U/L (15-37) 295 U/L (15-37) Alanine Aminotransferase (ALT/SGPT) 1217 U/L (14-59) 741 U/L (14-59) Alkaline Phosphatase 118 U/L (46-116) 103 U/L (46-116) Total Protein 6.5 g/dL (6.4-8.2) 6.3 g/dL (6.4-8.2) Albumin 3.3 g/dL (3.4-5.0) 3.1 g/dL (3.4-5.0) Albumin/Globulin Ratio 1.0 (1.0-1.7) Direct Bilirubin 0.4 mg/dL (0.0-0.2) Brief Hospital Course Ms Leal is a 41yo [place]aur[place]ian fijian female with no past medical history who comes to ED accompanied by her c/o severe RUQ pain. Pain is colicky, sharp, does not radiate, rated 7/10. Pain awoke her 300 and did vomit twice and applied a heating pad which initially gave her some improvement. She had associated nausea and was unable to even get out of bed. this began upon awakening today. no cough or fever, no chest pain, no trouble breathing. Completed COVID 19 vaccinations. This occurred 1 month ago and resolved, though she has been taking omeprazole since then as I suspected it was due to dyspepsia or from eating hot peppers. No diarrhea or constipation. No recent travel or sick contacts. Has 3 healthy children at home. Labs with WBC 7.4, Hb 13.5, platelets 174, NA 137, K3.7, BUN 13, CR 0.6, glucose 124, calcium 8.6, total bilirubin 1.9, AST 1346, ALT 722, alk phos 66, albumin 3.9, lipase 197, urine test negative urinalysis otherwise bland. Abdominal US with 21 mm gallstone in gallbladder fundus and enlarged gallbladder 11.2 cm. No gallbladder wall thickening is apparent. The extra hepatic bile duct measures 5 mm. Pain improved to 4/10 with IV morphine. Admitted for further care with general surgery consultation. 07/08: Lap gary with no complications. Incidentally COVID 19 PCR returned positive. No respiratory symptoms. 07/09: Day of discharge. Afebrile. Seen bedside. Passing flatus tolerating p.o. well. Minimal pain relieved with hydrocodone after extensive ambulation. Discussed need for isolation at home for the next 8 days that she is COVID-19 breakthrough case. No heavy lifting and follow-up with surgery in the next 2 weeks Problem list: Intractable abdominal pain - acute cholelithiasis. s/p OR, acute gary Transaminitis - likely related to biliary obstruction, possibly passed gallstone vs biliary sludge. Nausea and vomiting - due to above. IV anti-emetics and pain medications ordered. COVID 19 lab test positive - breakthrough case despite vaccination FEN - regular diet PPX - ambulatory FULL CODE Dispo - home with self care Consults: General surgery Discharge Information Condition at Discharge: Improved Follow Up: Weeks (1) Disposition/Orders: D/C to Home Scheduled PRN Hydrocodone Bit/Acetaminophen (Hydrocodone-Apap 5-325 ) 1 Tab Tablet, 1 TAB PO PRN Q4HRS PRN for MILD PAIN 1-3 for 3 Days, #12 Prescribed by: ODIN REYNA MD on 07/09/21 1157 Justicifation of Admission Dx: Justifications for Admission: Justification of Admission Dx: Yes ODIN REYNA MD Jul 09, 2021 12:07
--- NOTE | 2021-07-09 13:24 | NUR ---
SS following for discharge planning. SS reviewed pt chart and discussed with pt RN. Pt is from home and is currently on room air. COVID19 positive. Discharge order on the chart for home with self care.
--- NOTE | 2021-07-09 13:42 | NUR ---
pt was discharged home with self care, she displayed no s/s of Covid even thought she was tested positive. she was given instructions on her surgical wound care, self quarantine at home, precautions to take around others and when to see the surgeon. she was wheeled out to the ED exit to be picked up by her . Jose Martin Jones RN
--- NOTE | 2021-07-10 17:09 | PATHOLOGY ---
[facility] Accession Number: [id number] . 01 Material submitted: . gallbladder - GALLBLADDER AND CONTENTS . 01 Clinical history: . SYMPTOMATIC CHOLELITHIASIS LAP KAMILA POSSIBLE OPEN BILIARY COLIC, ABD PAIN . 02 Diagnosis: Gallbladder, cholecystectomy: - Cholelithiasis. - Chronic cholecystitis. (JPM:lillie; 07/10/2021) S 07/10/2021 0939 Local . 02 Comment: There is no evidence of malignancy. (JPM:lillie; 07/10/2021) . 02 Electronically signed: . Yossi Cartagena MD, Pathologist NPI- [id number] . 01 Gross description: . Fixative: Formalin Labeled: Gallbladder and contents Specimen received: Intact gallbladder Dimensions: 8.3 x 2.2 x 1.8 cm Serosa: Light bain-brewer Lymph node: None identified Mucosa: Velvety and bile-stained Average wall thickness: 0.2 cm Calculi: Present, light green-yellow and granular Abnormalities: None identified . 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 ([facility]; 07/09/2021) [facility] 07/09/2021 1157 Local . 02 Pathologist provided ICD-10: K80.10 . 02 CPT . 791341 Specimen Comment: A courtesy copy of this report has been sent to [phone] Specimen Comment: [id number] Specimen Comment: Report sent to / DR REYNA Performed at: 01 [facility] [address], [place], [place] [id number] MD Tim Rodgers MD Phone: [phone] Performed at: 02 [facility] [address] [place], [place] [id number] MD Yossi Cartagena MD Phone: [phone]
== END 2021-07-09 13:36 | disposition home or self-care (01) | DRG 417 ==
LOC: ER 10:11 → 4 NORTH 14:00 → 5 SOUTH 07-08 12:35
PROVIDERS: ADMIT Internal Medicine; ATTEND Internal Medicine
PROC: 0FT44ZZ Resection of Gallbladder, Percutaneous Endoscopic Approach (ICD-10-PCS; principal; 2021-07-07)
PROC: BF101ZZ Fluoroscopy of Bile Ducts using Low Osmolar Contrast (ICD-10-PCS; 2021-07-07)
DX: K80.11 Calculus of gallbladder with chronic cholecystitis with obstruction (principal); U07.1 COVID-19; K82.8 Other specified diseases of gallbladder; Z83.3 Family history of diabetes mellitus
CPT/HCPCS: 36415; 74300; 76705; 80053; 80076; 81001; 81025; 82248; 83690; 85025; 86705; 86709; 86803; 87340; 87426; 88304; 96374; 96375; A4209; A4213; A4223; A4314; A4364; A4452; A4657; A4930; A6219; C1887; J0690; J1100; J1885; J2270; J2405; J2704; J2710; J2765; J3010; J3490; J7120; Q9967; U0003; U0005; 99285-25; G0378

== ENCOUNTER → 2021-08-13 | Outpatient (CLI) | payer SELFPAY ==
[~2021-08-13] MED LIST: HYDR-2761 PO
--- NOTE | 2021-08-13 16:17 | KCIC ---
Bilateral upper extremity venous duplex study 08/13/2021 3:10 PM Clinical History: Reason: Bilateral Arm Pain / Comparison: None Technique: Using a combination of real time ultrasound imaging and color-flow and pulse Doppler imagi ng techniques along with graded compression and augmentation, duplex evaluation of the deep venous sy stem of the both upper extremities was performed. Multiple images were obtained. Findings: There is no sonographic evidence of deep venous thrombosis involving the visualized deep ve nous structures of either the upper extremity. Impression: No evidence of deep venous thrombosis involving either upper extremity Electronically signed by: Luke Mccauley MD (08/13/2021 4:15 PM) [id number]
== END ==
LOC: KCIC US 15:02
PROVIDERS: ATTEND Nurse Practitioner Family
DX: M79.601 Pain in right arm (principal); M79.602 Pain in left arm
CPT/HCPCS: 93970